=== PATIENT | female | born 1970 | race Caucasian/White ===

== ENCOUNTER 2017-06-08 06:23 | Day surgery (SDC) | payer OTHER ==
[~2017-06-08] VITALS: Ht 157.5 cm; Wt 85.5 kg
[~2017-06-08 06:23] MED LIST: ACETAMINOPHEN 325 MG TABLET PO PRN; CYCLOPENTOLATE HCL 2% 2 ML OPHTHALMIC SOLUTION ONE; DICLOFENAC SODIUM 0.1% 2.5 ML OPHTHALMIC SOLUTION OD SCH; MOXIFLOXACIN HCL 0.5% 3 ML OPHTHALMIC SOLUTION ONE; PHENYLEPHRINE HCL 2.5% 2 ML OPHTHALMIC SOLUTION ONE; RINGERS SOLUTION,LACTATED 0 ML IV ONE; RINGERS SOLUTION,LACTATED 500 ML IV ONE; TETRACAINE HCL/PF 0.5% 4 ML OPHTHALMIC SOLUTION ONE
[2017-06-08] MEDS ORDERED: FentaNYL CITRATE-PF 100 MCG/2 ML VIAL IVP ONE (06:24)
[2017-06-08] MEDS ORDERED: MIDAZOLAM HCL 2 MG/2 ML VIAL IVP ONE (06:24)
[2017-06-08] MEDS ORDERED: RINGERS SOLUTION,LACTATED 500 ML IV ONE (06:53)
[2017-06-08] MEDS ORDERED: MOXIFLOXACIN HCL 0.5% 3 ML OPHTHALMIC SOLUTION ONE (06:54)
[2017-06-08] MEDS ORDERED: KETOROLAC TROMETHAMINE 0.5% 5 ML OPHTHALMIC SOLUTION ONE (06:55)
[2017-06-08] MEDS ORDERED: TETRACAINE HCL/PF 0.5% 4 ML OPHTHALMIC SOLUTION ONE (06:55)
[2017-06-08] MEDS ORDERED: CYCLOPENTOLATE HCL 2% 2 ML OPHTHALMIC SOLUTION ONE (06:55)
[2017-06-08] MEDS ORDERED: PHENYLEPHRINE HCL 2.5% 2 ML OPHTHALMIC SOLUTION ONE (06:55)
[2017-06-08] MEDS: MOXIFLOXACIN HCL 0.5% 3 ML OPHTHALMIC SOLUTION OD SCH ×3 (07:29→07:42)
[2017-06-08] MEDS: TETRACAINE HCL/PF 0.5% 4 ML OPHTHALMIC SOLUTION OD SCH ×3 (07:29→07:41)
[2017-06-08] MEDS: CYCLOPENTOLATE HCL 2% 2 ML OPHTHALMIC SOLUTION OD SCH ×3 (07:29→07:41)
[2017-06-08] MEDS: PHENYLEPHRINE HCL 2.5% 2 ML OPHTHALMIC SOLUTION OD SCH ×3 (07:30→07:42)
[2017-06-08] MEDS: KETOROLAC TROMETHAMINE 0.5% 5 ML OPHTHALMIC SOLUTION OD SCH ×3 (07:30→07:41)
== END 2017-06-08 09:05 | disposition home or self-care (01) ==
LOC: SURGERY 06:23
PROVIDERS: ATTEND Ophthalmology
DX: H25.11 Age-related nuclear cataract, right eye (principal); M19.039 Primary osteoarthritis, unspecified wrist
CPT/HCPCS: 66984; 84703; C1780; J2250; J3010; J7120

== ENCOUNTER 2017-08-10 06:02 | Day surgery (SDC) | payer OTHER ==
[~2017-08-10] VITALS: Ht 157.5 cm; Wt 86.8 kg
[2017-08-10] MEDS ORDERED: LIDOCAINE HCL/PF 1% 2 ML VIAL INJ ONE (06:03)
[2017-08-10] MEDS ORDERED: EPINEPHrine 1:1,000 [1 MG/ML] AMP IM ONE (06:03)
[2017-08-10] MEDS ORDERED: HYALURONATE SODIUM 12 MG/ML 0.8 ML SYRINGE IO ONE (06:03)
[2017-08-10] MEDS ORDERED: FentaNYL CITRATE-PF 100 MCG/2 ML VIAL IVP ONE (06:03)
[2017-08-10] MEDS ORDERED: POVIDONE-IODINE 10% 15 ML SOLUTION UD TP ONE (06:03)
[2017-08-10] MEDS ORDERED: MIDAZOLAM HCL 2 MG/2 ML VIAL IVP ONE (06:03)
[2017-08-10] MEDS ORDERED: PILOCARPINE HCL 4% 15 ML OPHTHALMIC SOLUTION OS ONE (06:03)
[2017-08-10] MEDS ORDERED: KETOROLAC TROMETHAMINE 0.5% 5 ML OPHTHALMIC SOLUTION ONE (06:24)
[2017-08-10] MEDS ORDERED: MOXIFLOXACIN HCL 0.5% 3 ML OPHTHALMIC SOLUTION ONE (06:24)
[2017-08-10] MEDS ORDERED: RINGERS SOLUTION,LACTATED 500 ML IV ONE ×2 (06:24→07:15)
[2017-08-10] MEDS ORDERED: PHENYLEPHRINE HCL 2.5% 2 ML OPHTHALMIC SOLUTION ONE (06:25)
[2017-08-10] MEDS ORDERED: TETRACAINE HCL/PF 0.5% 4 ML OPHTHALMIC SOLUTION ONE (06:25)
[2017-08-10] MEDS ORDERED: CYCLOPENTOLATE HCL 2% 2 ML OPHTHALMIC SOLUTION ONE (06:25)
[2017-08-10] MEDS: MOXIFLOXACIN HCL 0.5% 3 ML OPHTHALMIC SOLUTION OS SCH ×2 (07:20→07:26)
[2017-08-10] MEDS: CYCLOPENTOLATE HCL 2% 2 ML OPHTHALMIC SOLUTION OS SCH ×2 (07:21→07:26)
[2017-08-10] MEDS: PHENYLEPHRINE HCL 2.5% 2 ML OPHTHALMIC SOLUTION OS SCH ×2 (07:21→07:26)
[2017-08-10] MEDS: KETOROLAC TROMETHAMINE 0.5% 5 ML OPHTHALMIC SOLUTION OS SCH ×3 (07:21→07:46)
[2017-08-10] MEDS: TETRACAINE HCL VISCOUS 0.5% 0.6 ML OPHTHALMIC SOLUTION OS SCH ×2 (07:26→07:47)
[2017-08-10] MEDS ORDERED: ACETAMINOPHEN 325 MG TABLET PO PRN (07:30)
== END 2017-08-10 08:55 | disposition home or self-care (01) ==
LOC: SURGERY 06:02
PROVIDERS: ATTEND Ophthalmology
DX: H25.12 Age-related nuclear cataract, left eye (principal); M19.90 Unspecified osteoarthritis, unspecified site; Z98.41 Cataract extraction status, right eye; Z88.6 Allergy status to analgesic agent; Z88.8 Allergy status to other drugs, medicaments and biological substances
CPT/HCPCS: 66984; C1780; J2250; J3010; J7120